=== PATIENT | male | born 1960 | race Caucasian/White ===

== ENCOUNTER → 2024-04-23 06:33 | Day surgery (SDC) | payer BC, SELFPAY | LOC: GI 06:33 | PROVIDERS: ATTENDING PHYSICIAN Internal Medicine Gastroenterology | DX: Z12.11 Encounter for screening for malignant neoplasm of colon (principal); D12.3 Benign neoplasm of transverse colon; K63.5 Polyp of colon; K57.30 Diverticulosis of large intestine without perforation or abscess without bleeding | CPT/HCPCS: 45385; 45380; 88305 ==

== ENCOUNTER 2024-08-27 06:59 | Emergency (ER) | payer BC, SELFPAY ==
[2024-08-27 07:01] VITALS: BP 142/89; BMI 31.4
[2024-08-27] MEDS: NSS 1000 IV (07:14)
[2024-08-27] MEDS: MORPHINE SULFATE 4 MG IV (07:19)
[2024-08-27 07:22] LABS: ALT (SGPT) 58 U/L (0-50); AST (SGOT) 90 U/L (17-59); Albumin 4.4 g/dl (3.5-5.0); Alkaline Phosphatase 64 U/L (38-126); Blood Urea Nitrogen 16 mg/dl (9-20); Calcium 9.4 mg/dl (8.4-10.2); Carbon Dioxide 26 mmol/L (22-30); Chloride 104 mmol/L (98-107); Estimated Creatinine Clearance > 125 ml/min; Glucose 148 mg/dl (70-99); Lipase 105 U/L (23-300); Potassium 3.7 mmol/L (3.5-5.1); Sodium 143 mmol/L (135-145); Total Bilirubin 0.6 mg/dl (0.2-1.3); Total Protein 6.3 g/dl (6.3-8.2); eGFR > 60.00
--- NOTE | 2024-08-27 07:39 | ED.GENMED ---
History of Present Illness
General
Chief Complaint: Abdominal Symptoms
Source: patient and ambulance crew
Exam Limitations: none
Time Seen by Provider: 08/27/24 07:00
Nursing documentation reviewed up to this point in time: agreed with
History of Present Illness
History of Present Illness:
64-year-old male with a past medical history of hypertension, hyperlipidemia, atrial fibrillation who presents to the emergency department via EMS for evaluation of abdominal pain. Patient reports onset of symptoms around 3 AM and they have been
constant since that time. He reports pain is located in the periumbilical to epigastric region radiates in a band across the mid abdomen. He describes a sharp pain�'like a constant intense cramp.' He denies any clear triggering or relieving
factors. He reports associated nausea but no vomiting. He had a large bowel movement today was normal formed nonbloody. Has not had any recent diarrhea or constipation. He denies any fevers or chills. Denies any urinary symptoms. Denies any
similar symptoms in the past. He has a prior history of prostatectomy, no abdominal surgeries.
Review of Systems
Review of Systems
All Other Systems: ROS reviewed and negative except as documented in HPI and ROS
Constitutional: Denies fever or chills
Respiratory: Denies trouble breathing
Cardiac: Denies chest pain or palpitations
ABD/GI: Reports abdominal pain and nausea; Denies vomiting, diarrhea, constipated or bloody stools
: Denies dysuria, frequency, flank pain or difficulty voiding
Musculoskeletal: Denies neck pain or back pain
Neurological: Denies dizzy or headache
Phy Exam
Physical Exam
Physical Exam:
General: Awake, alert, oriented x3; appears uncomfortable
Head: Normocephalic, atraumatic
Eyes: Conjunctiva normal, EOMI, sclera anicteric
Throat: Airway intact, handling secretions
Neck: Trachea midline, supple without meningismus
Lungs: Clear to auscultation bilaterally, no wheezing, rales, rhonchi
Heart: Regular rate and rhythm, no murmurs, gallops, or rubs
Abd: Soft, non distended, tender to palpation in the epigastrium and periumbilical region with no palpable masses
Neuro: No gross deficits
Extremities: No edema in extremities, equal pulses in all extremities
Scores
Heart Failure Risk
Heart Failure Risk Score: Not Applicable
Heart Score for Chest Pain Patients
STEMI patient?: Not applicable
Withdrawal Assessment of Alcohol
Withdrawal Assessment Completed?: Not applicable
Course
Orders/Labs/Results
Orders:
Orders
08/27/24 07:04
Alcohol Urgent
Complete Blood Count/With Diff Urgent
Comprehensive Metabolic Panel Urgent
Lipase Urgent
08/27/24 07:06
CT Abd/pelvis W Iv Cont Urgent
Comment:
Reason For Exam: periumbilical abd pain
Morphine Sulfate 4 mg IV NOW STA
08/27/24 07:07
Electrocardiogram (*1) Urgent
Reason for Study: Abdominal Pain
EKG- Treatment ONCE
0.9% Sodium Chloride 1000 ml [Nss] 1,000 ml IV BOLUS
08/27/24 08:51
US Abdomen Complete/Upper Urgent
Comment:
Reason For Exam: upper abd pain, abnormal LFTs--eval for CBD dilati
08/27/24 08:52
Add On- LAB Urgent
Tests Added?: alcohol level
Troponin I Urgent
08/27/24 09:05
Urinalysis Reflex To Culture Urgent
Date Specimen was Collected: 08/27/24
Time Specimen was Collected: 07:10
Abnormal Lab Results
08/27/24
07:04
RBC 4.67 L 10^6/uL
(4.70-6.10)
MPV 12.3 H fL
(7.4-10.4)
Glucose 148 H mg/dl
(70-99)
AST 90 H U/L
(17-59)
ALT 58 H U/L
(0-50)
08/27/24 07:04
08/27/24 07:04
Vital Signs
Initial and Last Documented VS:
Initial Vital Signs
Temp Pulse Resp BP Pulse Ox
36.6 C 63 20 142/89 99
08/27/24 07:01 08/27/24 07:01 08/27/24 07:01 08/27/24 07:01 08/27/24 07:01
Last Documented Vital Signs
Temp Pulse Resp BP Pulse Ox
36.6 C 58 16 131/89 96
08/27/24 07:01 08/27/24 09:07 08/27/24 09:07 08/27/24 09:07 08/27/24 09:07
MDM/Problems Addressed
Differential Diagnosis Includes:
Pancreatitis, gastritis/PUD, cholelithiasis, cholecystitis, nephrolithiasis
MDM/Problems Addressed:
64-year-old male presents to the emergency room for evaluation of mid abdominal pain associated with nausea that started at 3 AM and has been constant. Vitals and exam as above. Will place an IV check labs including a CBC and a CMP, lipase. Check
urinalysis. Will check an EKG and a troponin although lower suspicion that this is anginal equivalent pain based on location. Will send for CT abdomen pelvis. Treat pain and provide fluids. Monitor closely reassess after the above.
Labs reviewed: CBC unremarkable, CMP shows abnormal LFTs with AST/ALT 90/58; normal bilirubin, normal lipase. CT abdomen pelvis shows appears to be a gallstone and some mild periportal edema in the liver no other acute pathology. With abnormal
LFTs and concern for gallstones on CT Will send for upper abdominal ultrasound to evaluate for any CBD dilation and to rule out cholecystitis.
Ultrasound showed 2 foci of the gallbladder wall likely representing polyps, no signs of acute cholecystitis, top normal liver size. No gallstones noted�findings on CT likely a polyp. Could be the patient had gallstone that was passed given
marginally abnormal LFTs or transient obstruction from gallbladder polyp. His symptoms have completely resolved he has not had recurrence since initial dose of pain medication and has been in the ER for 4+ hours. He says that he feels much better.
I think he is stable for discharge but will provide GI referral for outpatient follow-up of LFTs and gallbladder polyps, liver findings. Patient is comfortable to this plan. Advised him to eat bland diet over the next few days. We spoke about
return precautions and all questions were answered.
*Radiology
Radiology exam reviewed: radiology read reviewed
*Pulse Oximetry
Patient hypoxic: no
*EKG
Interpreted by ED Provider?: Yes
Heart Rate: 58
Rate: bradycardiac
Rhythm: sinus
[place]: normal axis
Interval: normal interval
QRS Pattern: normal QRS
Ischemia: no ischemia
*Critical Care Note
Total Time (30-74mins, 75-104mins- exclusive of procedures): Not Applicable
Data Reviewed
Review of Other/Old Records Reveals: Labs and Records
Source: patient, records and ambulance crew
ED Attending Note
-
Portions of this chart may have been created with voice recognition software.� Occasional wrong word or��sound alike� substitutions may have occurred due to the inherent limitations of voice recognition software.
Discharge Plan
Departure
Patient Disposition: Home (Routine Discharge)
Date of Disposition: 08/27/24
Time of Disposition: 11:16
Patient with high blood pressure during this ER visit?: No
Discharge Problem:
Polyp of gallbladder, Abnormal LFTs
Instructions: Abdominal Pain
Prescriptions:
No Action
multivitamin 1 EACH tablet
1 ea PO DAILY
atorvastatin 80 MG tablet
80 mg PO DAILY
lisinopril 40 MG tablet
40 mg PO DAILY
dofetilide 500 MCG capsule
500 mcg PO Q12 Qty: 60 1RF
apixaban [Eliquis] 5 MG tablet
5 mg PO BID Qty: 60 1RF
metoprolol tartrate 25 MG tablet
25 mg PO BID
pantoprazole 40 MG tablet,delayed release (DR/EC)
40 mg PO DAILY Qty: 14 0RF
Referrals:
Shilpi Hernandez MD [Active] - Call in 1-3 days for appt
Chilo Vásquez DO [Family Provider] -
Activity Restrictions/Additional Instructions:
Thank you for visiting the Emergency Department at [facility].
1. Please schedule a follow up appointment as directed. Call first thing tomorrow morning to make an appointment.
2. If indicated, please take your medications as instructed and indicated on discharge paperwork.
3. If any of your symptoms do not improve, or persist, or become more severe within 6-12 hours, please return to the emergency department for further care.
4. Please return to the emergency department if you develop a headache, neck pain/stiffness, fever greater than 100.4F, chest pain, shortness of breath, persistent nausea, vomiting, slurred speech, difficulty walking, numbness/tingling, weakness,
signs of infection or any other symptoms that are worrisome to you.
Please call [phone] if you have any questions.
Interventions
Interventions:
*Risk Screen - Suicide Last Done: 08/27/24 07:01
*General Assessment Last Done: 08/27/24 07:01
*Neglect/Abuse Screening Last Done: 08/27/24 07:01
ED- Fall Risk Assessment Last Done: 08/27/24 07:36
*ED COVID-19 Vaccine History Last Done: 08/27/24 07:01
VX-Llbnqz-Kjerrkljcc Assessment Last Done: 08/27/24 07:36
Discharge Date and Time
Print Language: MAORI
[2024-08-27 08:10] LABS: % Basophils 0.6 % (0-2); % Eosinophils 1.7 % (0-6); % Immature Granulocytes 0.3 % (0-0.5); % Lymphocytes 42.8 % (20.5-51.1); % Monocytes 9.3 % (1.7-9.3); % Neutrophils 45.3 % (42.2-75.2); Absolute Eosinophils 0.1 10^3/uL (0-0.7); Absolute Monocytes 0.6 10^3/uL (0.1-0.6); Absolute Neutrophils 3.1 10^3/uL (1.4-6.5); Hematocrit 39.9 % (39.0-52.0); Hemoglobin 13.5 g/dL (13.0-18.0); Mean Corp Hgb Conc. 33.8 g/dL (33.0-37.0); Mean Corpuscular Hgb 28.9 pg (27.0-31.0); Mean Corpuscular Volume 85.4 fL (80.0-94.0); Mean Platelet Volume 12.3 fL (7.4-10.4); Nucleated Red Blood Cells % 0 % (-); Platelet Count 199 10^3/uL (130-400); Red Blood Cell Count 4.67 10^6/uL (4.70-6.10); Red Cell Dist. Width 12.8 % (11.5-14.5); White Blood Cell Count 6.9 10^3/uL (4.8-10.8)
[2024-08-27 09:07] VITALS: BP 131/89
[2024-08-27 09:21] LABS: Urine Albumin Trace (Neg - Trace); Urine Bilirubin Negative (Negative); Urine Character Clear (Clear); Urine Color Yellow; Urine Glucose Negative (Negative); Urine Ketone Negative (Negative); Urine Leukocyte Negative (Negative); Urine Nitrite Negative (Negative); Urine Occult Blood Negative (Negative); Urine Specific Gravity 1.015 (<1.030); Urine Urobilinogen Negative (Neg - 1+)
[2024-08-27 09:23] LABS: Troponin I < 0.012 ng/ml
[2024-08-27 09:29] LABS: Alcohol None Detected
[2024-08-27 11:32] VITALS: BP 133/87
== END 2024-08-27 11:32 | disposition home or self-care (01) ==
LOC: EMR 06:59
PROVIDERS: EMERGENCY PHYSICIAN Emergency Medicine; FAMILY PHYSICIAN Internal Medicine
DX: K82.4 Cholesterolosis of gallbladder (principal); R79.89 Other specified abnormal findings of blood chemistry; I10 Essential (primary) hypertension; E78.00 Pure hypercholesterolemia, unspecified; I48.91 Unspecified atrial fibrillation; Z90.79 Acquired absence of other genital organ(s)
CPT/HCPCS: 99284; 96374; 96361; 74177; 76700; 80053; 81003; 82077; 83690; 84484; 85025; 93005; Q9967

== ENCOUNTER 2024-11-02 06:32 | Day surgery (SDC) | payer BC, SELFPAY ==
[2024-11-02] VITALS (8 sets, daily range): BP systolic 128–149; BP diastolic 77–99; BMI 28.3
[2024-11-02] MEDS: IC GREEN 2.5 MG IV (11:26)
[2024-11-02] MEDS: TYLENOL 1000 MG PO (11:26)
--- NOTE | 2024-11-02 12:50 | OR.RPT ---
Operative Report
Operative Report
Primary Surgeon: Vivi
Assisting: Jennifer Perez PA-C
Pre-op Diagnosis: Choledocholithiasis
Post-op Diagnosis: Chronic cholecystitis
Procedure Performed: Robot assisted laparoscopic cholecystectomy with cholangiogram
Anesthesia Type: GETA
Specimen / Cultures: Gallbladder
Estimated Blood Loss: 3cc
Complications: None immediate
Operative Findings: Decompressed gallbladder with dense omental adhesions and thickened fibrotic wall; cholangiogram with opacification of CBD, CHD and hepatic radicals, duodenum without filling defects
Date of Surgery:� 11/02/24
Indications: This 64M developed biliary colic. Work-up showed gallstones in the common bile and common hepatic ducts, elevated liver enzymes and no ductal dilation. Laparoscopic cholecystectomy with robotic assist and cholangiogram was elected.
Description of procedure: The patient was placed on the operating table in the supine position. General anesthesia was induced. A time-out was completed verifying correct patient, procedure, site, positioning, and special equipment prior to
beginning this procedure. An orogastric tube was placed. The abdomen was prepped and draped in the usual sterile fashion. A stab incision was made in left upper quadrant and the Veress needle was inserted. Proper position was confirmed by aspiration
and saline meniscus test. The abdomen was insufflated with carbon dioxide to a pressure of 12mmHg. The patient tolerated insufflation well.
A 8mm trocar was then inserted above the umbilicus. The laparoscope was inserted and the abdomen inspected. No injuries from initial trocar placement or Veress needle insertion were noted. Additional 8mm trocars were then inserted in the following
locations: two in the right lower quadrant and to the left of the umbilicus and just above. The abdomen was inspected and no abnormalities were found. The table was placed in the reverse Trendelenburg position with the right side up. The dome of the
gallbladder was grasped with an atraumatic grasper and retracted over the dome of the liver. Dense omental adhesions were carefully teased down with gently blunt sweeps and judicious hook cautery. The infundibulum was then grasped with an atraumatic
grasper and retracted toward the right lower quadrant. This maneuver exposed Calot�s triangle. The peritoneum overlying the gallbladder infundibulum was then incised and the cystic duct and cystic artery identified and circumferentially dissected so
that a clear view of the liver was achieved through a window between the cystic duct an cystic artery. At this time, the only two structures going into the gallbladder were the cystic artery and cystic duct. The common dict was identified with ICG
and protected.
A alem was made in the cystic duct and a cholangiogram catheter was passed through the abdominal wall with a suture passer and threaded into the cystic duct and secured with a 2-0 silk. The cholangiogram showed opacification of common bile and
common hepatic ducts as well as hepatic radicals and duodenum without filling defects. The catheter was removed.
The cystic duct was then doubly clipped and divided. The cystic artery was controlled with bipolar and divided. The gallbladder was then dissected from its peritoneal attachments by electrocautery. The posterior plane was fibrotic. The gallbladder
was removed using an endoscopic retrieval bag placed through the umbilical port. The gallbladder was passed off the table as a specimen. The gallbladder fossa was closely inspected. There was no evidence of bleeding from the gallbladder fossa or
cystic artery or leakage of the bile from the cystic duct stump. The umbilical trocar site was closed at the fascial level with 2-0 PDS. Secondary trocars were removed under direct vision and noted to be hemostatic. The abdomen was allowed to
collapse. The skin was closed with subcuticular sutures of 4-0 monocryl and topical skin adhesive. The orogastric tube was removed.
The patient tolerated the procedure well and was taken to the postanesthesia care unit in stable condition.
The assistance of Jennifer GONG was required due to the complexity of the procedure. During the procedure she assisted with retraction, intra-abdominal access, and closure of the wound.
== END 2024-11-02 14:45 | disposition home or self-care (01) ==
LOC: SDS 06:32
PROVIDERS: ATTENDING PHYSICIAN Surgery
DX: K81.1 Chronic cholecystitis (principal)
CPT/HCPCS: 47563; 88304; 74300; 76000; A4300

== ENCOUNTER 2024-11-02 21:20 | Observation (INO) | payer BC, SELFPAY ==
[2024-11-02 17:23] VITALS: BP 149/84
[2024-11-02 17:57] LABS: % Basophils 0.1 % (0-2); % Eosinophils 0.1 % (0-6); % Immature Granulocytes 0.3 % (0-0.5); % Monocytes 1.5 % (1.7-9.3); Absolute Lymphocytes 0.5 10^3/uL (1.2-3.4); Absolute Monocytes 0.2 10^3/uL (0.1-0.6); Hematocrit 46.1 % (39.0-52.0); Hemoglobin 14.8 g/dL (13.0-18.0); Mean Corp Hgb Conc. 32.1 g/dL (33.0-37.0); Mean Corpuscular Hgb 29.1 pg (27.0-31.0); Mean Corpuscular Volume 90.7 fL (80.0-94.0); Mean Platelet Volume 11.7 fL (7.4-10.4); Nucleated Red Blood Cells % 0 % (-); Platelet Count 195 10^3/uL (130-400); Red Blood Cell Count 5.08 10^6/uL (4.70-6.10); Red Cell Dist. Width 12.5 % (11.5-14.5); White Blood Cell Count 10.7 10^3/uL (4.8-10.8)
[2024-11-02 18:12] LABS: ALT (SGPT) 143 U/L (0-50); AST (SGOT) 172 U/L (17-59); Albumin 4.7 g/dl (3.5-5.0); Alkaline Phosphatase 75 U/L (38-126); Blood Urea Nitrogen 18 mg/dl (9-20); Calcium 9.2 mg/dl (8.4-10.2); Carbon Dioxide 29 mmol/L (22-30); Chloride 101 mmol/L (98-107); Glucose 152 mg/dl (70-99); Lipase 846 U/L (23-300); Potassium 4.2 mmol/L (3.5-5.1); Sodium 141 mmol/L (135-145); Total Bilirubin 0.9 mg/dl (0.2-1.3); Total Protein 6.8 g/dl (6.3-8.2); eGFR > 60.00
--- NOTE | 2024-11-02 18:19 | ED.GENMED ---
History of Present Illness
General
Chief Complaint: Abdominal Pain
Source: patient and records
Time Seen by Provider: 11/02/24 17:48
History of Present Illness
History of Present Illness:
64yoM with a history of atrial fibrillation, hypertension, and hyperlipidemia presenting with his for evaluation of abdominal pain. Patient underwent cholecystectomy this afternoon with Dr. Trinidad. He was discharged home after the procedure.
About 15 minutes after returning home, he started to experience severe pain in his upper abdomen. He states it felt like when he passed a gallstone this first time but less severe. His pain has currently improved. He denies any fevers or vomiting.
He has not passed flatus since the procedure.
Phy Exam
General Physical Exam
General Presentation: well appearing and no apparent distress
General age: appears stated age
General Skin: warm and dry
General Habitus: normal
General Mental: alert
ENT Exam
ENT Exam: normocephalic
Pulmonary Exam
Pulmonary Exam: no respiratory distress
Gastrointestinal Exam
Gastrointestinal Exam: soft, non distended and other (Incisions c/d/i. Appropriate incisional tenderness noted. Abdomen soft, non-distended. No guarding or rebound. )
Neurological Exam
Neurological Exam: alert
Elsie Coma Scale
Eye Opening: Spontaneous
Verbal Response: Oriented
Motor Response: Obeys Commands
GCS Total Score: 15
Skin Exam
Skin Exam: normal color and warm/dry
Psychiatric Exam
Psychiatric Exam: normal mood/affect
Course
Orders/Labs/Results
Orders:
Orders
11/02/24 17:37
Complete Blood Count/With Diff Urgent
Comprehensive Metabolic Panel Urgent
Lipase Urgent
11/02/24 18:19
HYDROmorphone [Dilaudid] 0.5 mg IV NOW STA
11/02/24 18:28
Mrcp Without MR [MR Mrcp Without] Urgent
Comment:
Reason For Exam: Pain s/p cholecystectomy
Recent pill cam endoscopy?: No
11/02/24 18:40
Piperacillin/Tazo 4.5 Gram [Zosyn] 4.5 gram in 100 ml IV NOW
11/02/24 20:24
Admit/Transfer Patient As Directed
Co-Sign Provider:
Level of Care: Observation services
Assign to:: Medical/Surgical
Physician / Group: Dr. Randolph Mccray
Diagnosis: Intractable post op abdominal pain
PRN Pain Medication Management As Directed
May give lesser potent ordered pain med per pt: Yes
preference::
Protocol:: Medication orders for pain may be administered in a
manner that supports deferring to patient preference
when the pt is:
- Requesting an ordered lesser potent pain medication.
Least to most potent pain medications are defined
as: acetaminophen < NSAID < tramadol < opioids
(morphine, oxycodone, hydromorphone).
- Requesting a lesser dose of the same medication IF
ORDERED.
- Requesting a less intrusive route of administration
if both routes are prescribed by the provider (PO <
IV).
11/02/24 20:31
Code Status As Directed
Resuscitation Status: Full Code
Abnormal Lab Results
11/02/24
17:37
MCHC 32.1 L g/dL
(33.0-37.0)
MPV 11.7 H fL
(7.4-10.4)
Absolute Neuts (auto) 10.0 H 10^3/uL
(1.4-6.5)
Absolute Lymphs (auto) 0.5 L 10^3/uL
(1.2-3.4)
Neutrophils % 93.0 H %
(42.2-75.2)
Lymphocytes % 5.0 L %
(20.5-51.1)
Monocytes % 1.5 L %
(1.7-9.3)
Glucose 152 H mg/dl
(70-99)
AST 172 H U/L
(17-59)
ALT 143 H U/L
(0-50)
Lipase 846 H U/L
(23-300)
11/02/24 17:37
11/02/24 17:37
Vital Signs
Initial and Last Documented VS:
Initial Vital Signs
Temp Pulse Resp BP Pulse Ox
97.7 F 70 16 149/84 97
11/02/24 17:23 11/02/24 17:23 11/02/24 17:23 11/02/24 17:23 11/02/24 17:23
Last Documented Vital Signs
Temp Pulse Resp BP Pulse Ox
97.7 F 70 16 149/84 97
11/02/24 17:23 11/02/24 17:23 11/02/24 17:23 11/02/24 17:23 11/02/24 17:23
MDM/Problems Addressed
Differential Diagnosis Includes:
64yoM here with upper abdominal pain s/p cholecystectomy this afternoon. Pain now improved. He is afebrile and hemodynamically stable. He is non-toxic appearing. No signs of peritonitis on abdominal exam. Differential diagnosis includes but is not
limited to: postoperative pain, choledocholithiasis, pancreatitis, ileus
Initial ED plan: Abdominal labs obtained in triage. Transaminitis noted with AST of 172 and ALT 143. Total bilirubin 0.9. Lipase 846. Discussed case with Dr. Mccray. General surgery requesting MRCP for concern for choledocholithiasis and admission.
IV Zosyn ordered and patient admitted to the general surgery service for further management.
*Critical Care Note
Total Time (30-74mins, 75-104mins- exclusive of procedures): Not Applicable
ED Attending Note
-
Portions of this chart may have been created with voice recognition software.� Occasional wrong word or��sound alike� substitutions may have occurred due to the inherent limitations of voice recognition software.
Discharge Plan
Departure
Patient Disposition: Admit
Date of Disposition: 11/02/24
Time of Disposition: 18:31
Presentation/result/management discussed w/ accepting MD/DO: Dr. Mccray
Discharge Problem:
Postoperative abdominal pain, Transaminitis, S/P cholecystectomy
Prescriptions:
No Action
multivitamin 1 EACH tablet
1 ea PO DAILY
atorvastatin 80 MG tablet
80 mg PO DAILY
lisinopril 40 MG tablet
40 mg PO DAILY
dofetilide 500 MCG capsule
500 mcg PO Q12 Qty: 60 1RF
metoprolol tartrate 25 MG tablet
25 mg PO BID
oxycodone 5 mg tablet
5 - 10 mg PO Q4HPRN PRN (Reason: moderate to severe pain) Qty: 16 0RF
Referrals:
Chilo Vásquez DO [Family Provider] -
Interventions
Interventions:
*Risk Screen - Suicide Last Done: 11/02/24 17:23
*General Assessment Last Done: 11/02/24 17:23
*Neglect/Abuse Screening Last Done: 11/02/24 18:09
*ED COVID-19 Vaccine History Last Done: 11/02/24 17:23
MZ-Extmnj-Fakqfdsnxo Assessment Last Done: 11/02/24 18:09
Discharge Date and Time
Print Language: DANISH
[2024-11-02] MEDS: DILAUDID 0.5 MG IV (18:36)
[2024-11-02] MEDS: ZOSYN 100 IV (18:48)
--- NOTE | 2024-11-02 20:57 | HPS.HSE ---
Addendum entered and electronically signed by Ramesh Hough MD 11/03/24 08:44:
Patient seen and examined.
Patient is a 64 yo M POD#1 s/p robotic cholecystectomy with IOC on 11/02/[address] Mani Trinidad. Mr. Guerrero states that in the recovery area he was doing well and without any pain. Upon returning home he reports severe RUQ/epigastric pain similar
to prior episodes of a 'passed stone'. Currently he states that his pain has resolved. No fevers or chills. No nausea or vomiting. No jaundice, pale stools, or tea colored urine.
Gen: NAD
Abd: soft, NT/ND, non-peritoneal, incisions c/d/i - no erythema, ecchymosis or drainage
Labs and imaging reviewed.
Patient is a 64 yo M POD#1 s/p robotic cholecystectomy with IOC p/w likely retained and possibly passed stone.
AVSS. Abdominal pain has resolved. Labs notable for continued rising bilirubin and LFTs. MRI negative for choledocholithiasis or postoperative complication (no evidence of ductal injury, no free air, no significant fluid within GB fossa).
Options for management were reviewed. Consideration of GI consult, however, given negative MRI and improvement in symptoms unlikely that they will pursue a ERCP today. Discussed repeat labs during this admission versus as an outpatient; will
discuss with operative surgeon. Plan for trial of low-fat diet.
-- Trial of ow fat diet
-- Repeat labs during this admission versus outpatient
-- No need for abx
-- Pain control: Tylenol, Toradol, Oxycodone
-- Home meds
-- Tentative plan for DC today pending above
Original Note:
Family Physician
-
Family Physician: Chilo Vásquez
Chief Complaint
-
Intractable abdominal pain
History of Present Illness
Patient is a 64 year old male, with a PMHx significant for atrial fibrillation, hypertension, and hyperlipidemia who presented to the emergency department with is for intractable abdominal pain. Patient had a laprascopic cholecystectomy in the
afternoon with Dr. Trinidad and was discharged home after the procedure. Patient reports that about 15 minutes after he was home, he started to experience severe pain in his right upper abdomen. He reports the pain felt the same as when he passed a
gallstone the first time but less severe. Patient stated he tried taking an oxycodone around 4 pm and took another around 4:30 pm with no relief, so he returned to the emergency department. He denies fevers, chills or nausea/vomiting.
In the emergency department patient received pain medication (Dilaudid 0.5 mg IV x 1 dose) and IV antibiotics (Zosyn 4.5 g IV x 1).
MRCP was ordered. Dr. Worthy was contacted and patient is being admitted to his service.
Medical History
Past Medical History
Past Medical History: Reports Arrhythmia, HTN and Hypercholesterolemia
Past Surgical History: Reports Cardiac (Ablation, 01/2022), Tonsilectomy (8 year old) and Urological (Prostate surgery 01/2022)
Social History
Tobacco: Non-smoker
Alcohol: None
Drug: None
Personal:
Living: With Family
Family History
Family History: Not pertinent
Allergies / Home Medications
Allergies reflects when Allergies were last updated in [facility].
Home Medications with original date entered in [facility]
Allergy/Medication List:
Patient Allergies
Allergy/AdvReac Type Severity Reaction Status Date / Time
No Known Allergies Allergy Verified 11/02/24 17:27
Home Medications
�Medication �Instructions �Recorded
atorvastatin 80 mg tablet 80 mg PO DAILY High cholesterol 01/04/22
lisinopril 40 mg tablet 40 mg PO DAILY Blood pressure 01/04/22
multivitamin 1 ea PO DAILY Supplement 01/04/22
dofetilide 500 mcg capsule 500 mcg PO Q12 #60 caps 01/18/22
metoprolol tartrate 25 mg tablet 25 mg PO BID 04/05/22
oxycodone 5 mg tablet 5 - 10 mg (1 - 2 x 5 mg) PO Q4HPRN 11/02/24
PRN moderate to severe pain #16
tabs
Review of Systems
-
History Source: Patient
A 12 point ROS was completed and negative except as noted: Yes
Respiratory: Reports No Symptoms
Cardiac: Reports No Symptoms
Abdomen/GI: Reports See HPI and Abdominal Pain (upper abdomen)
: Reports No Symptoms
Musculoskeletal: Reports No Symptoms
Neurological: Reports No Symptoms
Psych: Reports Calm
Physical Exam
Vital Signs
Vital Signs
Temp Pulse Resp BP Pulse Ox
97.7 F 70 16 149/84 97
11/02/24 17:23 11/02/24 17:23 11/02/24 17:23 11/02/24 17:23 11/02/24 17:23
Physical Exam
General: Well Nourished, Comfortable and Pain (abdominal pain)
HEENT: NormoCephalic and Moist mucous membranes
Respiratory: Clear
Cardiac: S1/S2 and Regular Rhythm
GI: Soft, Tender and Other (Surgical incisions noted )
Musculoskeletal: No Edema
Skin: Other (Surgical incisions on abdomen, approximated, c/d/i)
Neuro: AO x 3 and No Motor Deficits
Psych: Calm
Laboratory Results
-
11/02/24 17:37
11/02/24 17:37
Laboratory Results
Total Bilirubin 0.9 mg/dl (0.2-1.3) 11/02/24 17:37
AST 172 U/L (17-59) H 11/02/24 17:37
ALT 143 U/L (0-50) H 11/02/24 17:37
Alkaline Phosphatase 75 U/L (38-126) 11/02/24 17:37
Lipase 846 U/L (23-300) H 12/09/24 17:37
Data Reviewed
-
Lab Data: Labs Reviewed by me
Impression/Plan
-
IMPRESSION:
Patient is a 64 year old male, with a PMHx significant for atrial fibrillation, hypertension, and hyperlipidemia who presented to the emergency department with is for intractable abdominal pain.
PLAN:
Intractable abdominal pain
-S/P laparoscopic cholecystectomy, 11/02/2024 w/Dr. Trinidad
-Admit to Surgery service, Dr. Mccray
-NPO
-IV fluids, NSS @ 80 mls/hr
-Pain control, antiemetics PRN
-MRCP ordered, if positive for Choledocholithiasis will start antibiotic coverage (Zosyn) and consult GI for possible ERCP
Atrial fibrilation/HTN/HLD
-Continue home medication, per surgery: Dofetilide (Resumed per surgery)
-Continue home medications: Lisinopril (On hold at this time), Metoprolol (Resumed per surgery)
-Continue home medication as per surgery: Atorvastatin (On hold at this time)
Code status: Full Code
DVT Prophylaxis: Lovenox, SCD's
[2024-11-02 21:13] VITALS: BP 147/97
[2024-11-02 22:15] VITALS: BP 157/94; BMI 29.9
[2024-11-02] MEDS: LOPRESSOR 25 MG PO (22:26)
[2024-11-02] MEDS: NSS 1000 IV (22:30)
[2024-11-02] MEDS: TIKOSYN 500 MCG PO (23:17)
[2024-11-02 23:33] VITALS: BMI 29.9
[2024-11-02] MEDS: TYLENOL 650 MG PO (23:45)
[2024-11-02 23:46] VITALS: BMI 30.2
[2024-11-02 23:48] VITALS: BP 148/96
--- NOTE | 2024-11-03 02:18 | PTCARENOTE ---
Received patient at approximately 23:00 via WC into room 2250. Patient ambulated self to bed w/out difficulty. Tele monitor applied pt SR, HR in the 60-70's at rest. Patient c/o abdominal discomfort, described as 'tender'. Tylenol administered see
MAR. IV fluids maintained per order. Patient oriented to room and aware of POC. Call elizabeth within reach.
[2024-11-03 02:30] VITALS: BP 127/99
[2024-11-03 02:52] LABS: Hematocrit 41.5 % (39.0-52.0); Hemoglobin 13.7 g/dL (13.0-18.0); Mean Corpuscular Hgb 29.1 pg (27.0-31.0); Mean Corpuscular Volume 88.1 fL (80.0-94.0); Mean Platelet Volume 11.3 fL (7.4-10.4); Platelet Count 181 10^3/uL (130-400); Red Blood Cell Count 4.71 10^6/uL (4.70-6.10); Red Cell Dist. Width 12.5 % (11.5-14.5); White Blood Cell Count 11.4 10^3/uL (4.8-10.8)
[2024-11-03 03:28] LABS: ALT (SGPT) 538 U/L (0-50); AST (SGOT) 613 U/L (17-59); Albumin 4.4 g/dl (3.5-5.0); Alkaline Phosphatase 88 U/L (38-126); Amylase 147 U/L (30-110); Blood Urea Nitrogen 15 mg/dl (9-20); Carbon Dioxide 26 mmol/L (22-30); Chloride 105 mmol/L (98-107); Estimated Creatinine Clearance 111 ml/min; Glucose 112 mg/dl (70-99); Lipase 829 U/L (23-300); Potassium 4.2 mmol/L (3.5-5.1); Sodium 139 mmol/L (135-145); Total Bilirubin 1.9 mg/dl (0.2-1.3); Total Protein 6.4 g/dl (6.3-8.2); eGFR > 60.00
--- NOTE | 2024-11-03 05:01 | PTCARENOTE ---
Rhina TEAGUE made aware of patients critical blood work this AM. AST 613 and ALT 538. Patient has scheduled Tylenol 650mg q6H. Rhina TEAGUE aware, and OK to continue w/ medication.
[2024-11-03] MEDS: TYLENOL 650 MG PO (05:45)
[2024-11-03 07:16] VITALS: BP 126/84
[2024-11-03] MEDS: LOPRESSOR 25 MG PO (09:20)
[2024-11-03] MEDS: TIKOSYN 500 MCG PO (09:20)
[2024-11-03] MEDS: LIPITOR 80 MG PO (09:20)
[2024-11-03] MEDS: ZESTRIL 40 MG PO (09:20)
[2024-11-03] MEDS: AFLURIA (36 mos+) 2024-2025 FORMULA 0.5 ML IM (11:13)
--- NOTE | 2024-11-03 11:29 | CM ---
spoke to pt in room, he is prev indep, lives with his in a 2 story home with 4 steps to enter. he denies any dme's or dc planning needs. plan is for dc to home when medically stable. obs letter given, explained and signed.
[2024-11-03 12:19] VITALS: BP 131/89
== END 2024-11-03 12:32 | disposition home or self-care (01) ==
LOC: IVU 21:20
PROVIDERS: Nurse Practitioner Family; Student in an Organized Health Care Education/Training Program; ADMITTING PHYSICIAN Surgery; EMERGENCY PHYSICIAN Emergency Medicine; FAMILY PHYSICIAN Internal Medicine
DX: G89.18 Other acute postprocedural pain (principal); R10.10 Upper abdominal pain, unspecified; I48.91 Unspecified atrial fibrillation; E78.00 Pure hypercholesterolemia, unspecified; I10 Essential (primary) hypertension; R74.01 Elevation of levels of liver transaminase levels; J98.11 Atelectasis; Z90.49 Acquired absence of other specified parts of digestive tract; Z23 Encounter for immunization
CPT/HCPCS: 88304; 74181; 74300; 76000; 80053; 82150; 83690; 85025; 85027; 90686; 96365; 96375; 99285; G0008; G0378

== ENCOUNTER → 2024-12-31 08:45 | Outpatient (REF) | payer BC, SELFPAY | LOC: RCS 08:45 | PROVIDERS: ATTENDING PHYSICIAN Internal Medicine; FAMILY PHYSICIAN Internal Medicine | DX: I48.0 Paroxysmal atrial fibrillation (principal); I10 Essential (primary) hypertension; R06.09 Other forms of dyspnea | CPT/HCPCS: 93017; 93350 ==

== ENCOUNTER → 2025-01-01 12:52 | Outpatient (REF) | payer BC, SELFPAY | LOC: RCS 12:52 | PROVIDERS: ATTENDING PHYSICIAN Internal Medicine; FAMILY PHYSICIAN Internal Medicine | DX: I48.0 Paroxysmal atrial fibrillation (principal); I10 Essential (primary) hypertension; R06.09 Other forms of dyspnea | CPT/HCPCS: 93306 ==

== ENCOUNTER → 2025-10-11 07:55 | Outpatient (REF) | payer BC, SELFPAY | LOC: RAD 07:55 | PROVIDERS: ATTENDING PHYSICIAN Internal Medicine | DX: R91.1 Solitary pulmonary nodule (principal) | CPT/HCPCS: 71271 ==